=== PATIENT | male | born 1940 | race Caucasian/White ===

== ENCOUNTER 2024-01-08 14:55 | Inpatient (IN) | payer MEDICARE ==
[2024-01-08 15:50] LABS: #Basophils 0.05 10x3/uL (0.0-0.2); %Basophils 0.6 % (0.0-1.0); %Eosinophils 1.6 % (0.0-10.0); %Lymphocytes 21.6 % (21.0-51.0); %Monocytes 5.4 % (0.0-10.0); %Neutrophils 69.7 % (42.0-75.0); Hematocrit 48.8 % (42.0-52.0); Hemoglobin 16.2 g/dL (14.0-18.0); Mean Corpuscular HGB CONC 33.2 g/dL (32.0-36.0); Mean Corpuscular Volume 96.3 fL (78.0-98.0); Mean Platelet Volume 9.6 fL (7.4-10.4); Platelet Count 433 10x3/uL (130-400); Red Blood Cell (RBC) Count 5.07 mill/uL (4.70-6.10)
[2024-01-08 16:09] LABS: Troponin I Less than 0.010 ng/mL (< 0.028)
[2024-01-08] MEDS ORDERED: Acetaminophen 325 MG TAB PO PRN (16:36)
[2024-01-08] MEDS ORDERED: Ondansetron ODT 4 MG TAB PO PRN (16:36)
[2024-01-08] MEDS ORDERED: Acetaminophen 650 MG Suppository PR PRN (16:36)
[2024-01-08] MEDS ORDERED: Ondansetron PF 4 MG/2 ML Vial IVP PRN (16:36)
[2024-01-08 17:26] LABS: Anion Gap 17 mmol/L (10-20); Globulin 2.9 g/dL (2.4-3.5)
[2024-01-08 17:31] LABS: ALT (SGPT) 16 U/L (8-55); AST (SGOT) 19 U/L (5-34); Alkaline Phosphatase 63 U/L (40-110); BUN (Urea Nitrogen) 20 mg/dL (8.4-25.7); Bilirubin, Total 0.9 mg/dL (0.2-1.2); Calc. Creatinine Clearance 0 mL/min (70-130); Calcium 9.6 mg/dL (7.8-10.44); Carbon Dioxide 21 mmol/L (23-31); Chloride 106 mmol/L (98-107); Estimated GFR 72; Glucose 95 mg/dL (83-110); Magnesium 2.2 mg/dL (1.6-2.6); Potassium 4.6 mmol/L (3.5-5.1); Protein, Total 6.9 g/dL (5.8-8.1); Sodium 139 mmol/L (136-145)
[2024-01-08 18:25] VITALS: BMI 20.9
[2024-01-08 20:25] LABS: Troponin I Less than 0.010 ng/mL (< 0.028)
[2024-01-08 23:49] LABS: Troponin I Less than 0.010 ng/mL (< 0.028)
[2024-01-09 05:43] LABS: #Basophils 0.05 10x3/uL (0.0-0.2); %Basophils 0.7 % (0.0-1.0); %Eosinophils 1.4 % (0.0-10.0); %Lymphocytes 24.9 % (21.0-51.0); %Monocytes 7.3 % (0.0-10.0); %Neutrophils 64.7 % (42.0-75.0); Hematocrit 43.7 % (42.0-52.0); Hemoglobin 14.4 g/dL (14.0-18.0); Mean Corpuscular Hemoglobin 31.2 pg (27.0-31.0); Mean Corpuscular Volume 94.8 fL (78.0-98.0); Mean Platelet Volume 9.9 fL (7.4-10.4); Platelet Count 370 10x3/uL (130-400); RBC Distribution Width 12.9 % (11.5-14.5); Red Blood Cell (RBC) Count 4.61 mill/uL (4.70-6.10)
[2024-01-09 06:05] LABS: Anion Gap 10 mmol/L (10-20)
[2024-01-09 06:08] LABS: BUN (Urea Nitrogen) 20 mg/dL (8.4-25.7); Calc. Creatinine Clearance 52 mL/min (70-130); Calcium 8.7 mg/dL (7.8-10.44); Carbon Dioxide 24 mmol/L (23-31); Chloride 106 mmol/L (98-107); Estimated GFR 84; Glucose 105 mg/dL (83-110); Sodium 136 mmol/L (136-145)
[2024-01-09] MEDS ORDERED: CEFAZOLIN 1 GM VIAL ONE (06:17)
[2024-01-09] MEDS ORDERED: Gentamicin 80 MG/2 ML VIAL ONE (06:17)
[2024-01-09] MEDS ORDERED: CEFAZOLIN 2 GM VIAL ONE (06:18)
[2024-01-09] MEDS ORDERED: Midazolam HCl 2 mg/2 ml Vial ONE (07:04)
[2024-01-09] MEDS: Losartan 25 MG TAB PO SCH (10:49)
[2024-01-09] MEDS: Atorvastatin Calcium 20 MG TAB PO SCH (10:54)
[2024-01-09 12:05] VITALS: TEMP 98.1
[2024-01-09 15:24] VITALS: BP 131/64
== END 2024-01-09 15:35 | disposition home or self-care (01) | DRG 244 ==
LOC: SUATTDRO 14:55 → ERS 14:55 → 2NO 16:11
PROVIDERS: ADMIT Family Medicine; ATTEND Family Medicine
PROC: 0JH606Z Insertion of Pacemaker, Dual Chamber into Chest Subcutaneous Tissue and Fascia, Open Approach (ICD-10-PCS; principal; 2024-01-09)
PROC: 02H63JZ Insertion of Pacemaker Lead into Right Atrium, Percutaneous Approach (ICD-10-PCS; 2024-01-09)
PROC: 02HK3JZ Insertion of Pacemaker Lead into Right Ventricle, Percutaneous Approach (ICD-10-PCS; 2024-01-09)
DX: I45.9 Conduction disorder, unspecified (principal); I49.5 Sick sinus syndrome; I10 Essential (primary) hypertension; Z79.82 Long term (current) use of aspirin; Z79.899 Other long term (current) drug therapy; Z98.49 Cataract extraction status, unspecified eye; Z98.52 Vasectomy status
CPT/HCPCS: 33208; 36415; 71045; 80048; 80053; 83735; 84484; 85025; 93005; 93010; 93798; 99152; 99153; C1785; C1898; J0690; J1580; J2250